=== PATIENT | female | born 1985 | race Caucasian/White ===

== ENCOUNTER → 2017-02-22 | Outpatient (CLI) | payer BC ==
[2017-02-22 16:33] LABS: CH 28.9; CHCM 34.9; HCT 36.6 % (34.0-46.0); HDW 2.59; MCH 29.4 pg (25.0-35.0); MCHC 35.5 g/dL (31.0-37.0); Mean Platelet Volume 6.4; RDW 12.6 % (11.5-15.5); WBC 11.5 k/uL (3.8-10.6)
[2017-02-22 16:49] LABS: Glucose 73 mg/dL (74-99); Non-African American GFR(MDRD) >60 (>60 ml/min/1.73 sqM)
[2017-02-22 17:20] LABS: Hepatitis B Surface Ag Index 0.05
[2017-02-23 00:50] LABS: Treponemal Ab Non-Reactive (Non-Reactive)
[2017-02-23 05:31] LABS: Toxoplasma Antibody (IgG) <3.0 IU/mL (<7.2)
== END | disposition home or self-care (01) ==
LOC: LABWHC1 16:02
PROVIDERS: ATTEND Obstetrics & Gynecology
DX: O26.811 Pregnancy related exhaustion and fatigue, first trimester (principal); Z3A.00 Weeks of gestation of pregnancy not specified
CPT/HCPCS: 36415; 82565; 82947; 85027; 86762; 86777; 86778; 86780; 86850; 86900; 86901; 87340; 87390; 87491; 87591

== ENCOUNTER → 2017-06-26 | Outpatient (CLI) | payer BC ==
[2017-06-26 08:52] LABS: HCT 38.1 % (34.0-46.0); HGB 12.8 gm/dL (11.4-16.0); MCH 28.8 pg (25.0-35.0); MCHC 33.6 g/dL (31.0-37.0); MCV 85.7 fL (80.0-100.0); Mean Platelet Volume 7.6; Platelet Count 250 k/uL (150-450); RBC 4.44 m/uL (3.80-5.40)
== END | disposition home or self-care (01) ==
LOC: LABWHC1 07:23
PROVIDERS: ATTEND Obstetrics & Gynecology
DX: Z34.82 Encounter for supervision of other normal pregnancy, second trimester (principal); Z3A.00 Weeks of gestation of pregnancy not specified
CPT/HCPCS: 36415; 82950; 85027; 86850

== ENCOUNTER → 2017-07-01 | Outpatient (CLI) | payer BC ==
[2017-07-01 12:05] LABS: Glucose 3 Hour, Gest 116 mg/dL
== END | disposition home or self-care (01) ==
LOC: LABWHC1 07:19
PROVIDERS: ATTEND Obstetrics & Gynecology
DX: O99.810 Abnormal glucose complicating pregnancy (principal); Z3A.00 Weeks of gestation of pregnancy not specified
CPT/HCPCS: 36415; 82951; 82952

== ENCOUNTER 2017-08-31 06:25 | Inpatient (IN) | payer BC ==
[2017-08-31] MEDS ORDERED: CARBOPROST TROMETHAMINE 250 MCG/ML 1 ML AMP IM PRN (06:43)
[2017-08-31] MEDS ORDERED: OXYTOCIN 10 UNIT/ML 1 ML VIAL IM PRN (06:43)
[2017-08-31] MEDS ORDERED: METHYLERGONOVINE 0.2 MG/ML 1 ML AMP IM PRN (06:43)
[2017-08-31] MEDS ORDERED: TERBUTALINE 1 MG/ML VIAL SQ PRN (06:43)
[2017-08-31] MEDS ORDERED: LIDOCAINE 1% (PF) 10 MG/ML (30 ML SDV) SQ PRN (06:43)
[2017-08-31 07:09] LABS: Basophils # (A) 0.1 k/uL (0-0.2); Basophils % (A) 1 %; Eosinophils # (A) 0.1 k/uL (0-0.7); Eosinophils % (A) 1 %; HCT 41.2 % (34.0-46.0); HGB 14.7 gm/dL (11.4-16.0); Lymphocytes # (A) 2.2 k/uL (1.0-4.8); Lymphocytes % (A) 18 %; MCH 29.7 pg (25.0-35.0); MCHC 35.8 g/dL (31.0-37.0); MCV 83.1 fL (80.0-100.0); Mean Platelet Volume 8.6; Monocytes # (A) 0.9 k/uL (0-1.0); Monocytes % (A) 7 %; Neutrophils # (A) 8.6 k/uL (1.3-7.7); Neutrophils % (A) 71 %; Platelet Count 219 k/uL (150-450); RBC 4.96 m/uL (3.80-5.40); RDW 13.3 % (11.5-15.5); WBC 12.1 k/uL (3.8-10.6)
[2017-08-31 07:45] VITALS: BMI 27.4
[2017-08-31] MEDS: LACTATED RINGERS 1,000 ML IV SCH ×2 (07:46→20:37)
[2017-08-31] MEDS ORDERED: SODIUM CHLORIDE 0.9% 100 ML BAG ONE (07:53)
[2017-08-31] MEDS ORDERED: BUPIVACAINE (PF) 0.25% 30 ML VIAL ONE (07:53)
[2017-08-31] MEDS ORDERED: fentaNYL (PF) 50 MCG/ML 5 ML AMP ONE (07:53)
[2017-08-31] MEDS ORDERED: OXYTOCIN 20 UNITS/1000 ML NS 1,000 ML IV SCH (09:45)
[2017-08-31] MEDS ORDERED: LANOLIN CREAM 5 GM TUBE TOPICAL PRN (12:23)
[2017-08-31] MEDS ORDERED: diphenhydrAMINE 25 MG CAP PO PRN (12:23)
[2017-08-31] MEDS ORDERED: SIMETHICONE 80 MG CHEWABLE PO PRN (12:23)
[2017-08-31] MEDS ORDERED: WITCH HAZEL 1 EACH MED..PAD TOPICAL PRN (12:23)
[2017-08-31] MEDS ORDERED: diphenhydrAMINE 50 MG/ML 1 ML VIAL IVP PRN ×2 (12:23)
[2017-08-31] MEDS ORDERED: Acetaminophen-Codeine 300-30mg TAB PO PRN ×2 (12:23)
[2017-08-31] MEDS ORDERED: ACETAMINOPHEN TAB 325 MG TAB PO PRN (12:23)
[2017-08-31] MEDS ORDERED: ZOLPIDEM 5 MG TAB PO PRN (12:23)
[2017-08-31] MEDS ORDERED: HYDROCORTISONE 2.5% RECTAL CREAM 30 GM TUBE RECTAL PRN (12:23)
[2017-08-31] MEDS ORDERED: diphenhydrAMINE 50 MG CAP PO PRN (12:23)
[2017-08-31] MEDS ORDERED: BENZOCAINE/MENTHOL SPRAY 1 GM/SPRAY AEROSOL TOPICAL PRN (12:23)
--- NOTE | 2017-08-31 12:25 | P.HPOB ---
History of Present Illness H&P Date: 08/31/17 Chief Complaint: Intrauterine at term: Active labor Marlys is a 31-year-old at 39 weeks gestation who arrives in active labor making cervical change. She is dilated to 7 cm on arrival. Jay every 2-3 minutes. heart tones 130s to 140s and reactive. Her course has remained unremarkable and she is feeling well at this time. On physical exam her vital signs are stable and afebrile. Heart regular, lungs clear, extremities without pain. Abdomen is soft gravid uterus is noted. Artificial rupture membranes was performed and light meconium was noted. Pertinent labs include A- blood type Rh antibody was negative, rubella immune, hepatitis B surface antigen and RPR were both negative as was groupie strep. Assessment intrauterine at term. Plan expect spontaneous vaginal delivery. She plans to use epidural for analgesia. Past Medical History Past Medical History: No Reported History History of Any Multi-Drug Resistant Organisms: None Reported Past Surgical History: Tonsillectomy Past Anesthesia/Blood Transfusion Reactions: No Reported Reaction Past Psychological History: No Psychological Hx Reported Smoking Status: Never smoker Past Alcohol Use History: None Reported Past Drug Use History: None Reported - Past Family History Mother Family Medical History: No Reported History Medications and Allergies Home Medications Medication Instructions Recorded Confirmed Type Pnv,Calcium 72/Iron/Folic Acid 1 tab PO DAILY 08/04/15 08/31/17 History [Pnv Plus Multivit Tab] Allergies Allergy/AdvReac Type Severity Reaction Status Date / Time Sulfa (Sulfonamide Allergy Swelling Verified 08/31/17 06:41 Antibiotics) Exam Osteopathic Statement: *. No significant issues noted on an osteopathic structural exam other than those noted in the History and Physical/Consult. - Vital Signs Vital signs: Vital Signs Temp Pulse Pulse Resp BP 08/31/17 07:08 97.9 F 80 17 129/82 08/31/17 06:54 97.7 F 81 15 121/80 Intake and Output 08/30/17 08/31/17 08/31/17 22:59 06:59 14:59 Output Total 150 Balance -150 Output: Urine 150 Straight 150 Other: Weight 70.307 kg 70.307 kg Results Result Diagrams: 08/31/17 06:47 Abnormal Lab Results - Last 24 Hours (Table) 08/31/17 Range/Units 06:47 WBC 12.1 H (3.8-10.6) k/uL Neutrophils # 8.6 H (1.3-7.7) k/uL
--- NOTE | 2017-08-31 12:28 | P.PROBDLV ---
Vaginal Delivery Note - . Vaginal Delivery Note: Patient progressed to complete and pushed with spontaneous vaginal delivery of a viable female over a third-degree perineal laceration. Following delivery of the head anterior posterior shoulders were delivered with essentially sideways traction by initially delivering the posterior shoulder by grasping underneath the axilla and rotating it in a counterclockwise motion. I do not believe this was a shoulder dystocia but it made to deliver easier in this particular situation. Once baby was delivered mouth nares were bulb suctioned and baby was placed on mother's abdomen where the umbilical cord was allowed to pulsate for 30 seconds prior to clamping and cutting. Nursery personnel was present to assume care. Placenta was then delivered intact and Pitocin was added to the IV. scores were 8 and 9 at one and 5 minutes respectfully weight was 9 lbs. 7 oz. Third-degree perineal laceration was noted and repaired in 2 layers initially a deep layer with 3-0 Vicryl was placed and then the remaining layer was repaired as an episiotomy once Xylocaine was used for analgesia and another 3-0 Vicryl was used at this point. A rectal exam was done at the beginning of the repair or involvement was noted and then again at the end of the repair it was also done. There was also an 18 await noted while touching near the anus indicating most likely no significant neurologic damage to her anus.
[2017-08-31] MEDS ORDERED: Rhogam IMMUNE GLOBULIN 1,500 UNIT/1 ML IM ONE (15:53)
[2017-08-31] MEDS: IBUPROFEN 600 MG TAB PO PRN (19:41)
[2017-08-31] MEDS: SENNOSIDES-DOCUSATE SODIUM 1 EACH TAB PO SCH (19:41)
[2017-09-01 07:38] VITALS: BP 103/60; PULSE 90; RESP 14; TEMP 98.4
--- NOTE | 2017-09-01 07:47 | P.DS ---
Providers Date of admission: 08/31/17 06:40 Expected date of discharge: 09/01/17 Attending physician: Jalen Bravo Primary care physician: Stated None Hospital Course: Marlys is doing very well day 1. She is ambulating, voiding, and she is tolerating her diet. She voices no complaints. Vital signs are stable and afebrile. Heart regular, lungs clear, extremities without pain. Her abdomen is soft uterus is firm below the umbilicus and lochia is reported be light. She'll plan to use a stool softer for next few days just to keep her stool soft trying to go through with a third-degree laceration. And Motrin prescription has been provided with a breast pump prescription. All the questions are answered for her prior to discharge. Discharge instructions thoroughly reviewed. She is stable for discharge this time. She will follow up with me in 6 weeks. Patient Condition at Discharge: Good Plan - Discharge Summary New Discharge Prescriptions: New Ibuprofen [Motrin] 600 mg PO Q6HR PRN #30 tab PRN Reason: Pain No Action Pnv,Calcium 72/Iron/Folic Acid [Pnv Plus Multivit Tab] 1 tab PO DAILY Discharge Medication List Pnv,Calcium 72/Iron/Folic Acid [Pnv Plus Multivit Tab] 1 tab PO DAILY 08/04/15 [History] Ibuprofen [Motrin] 600 mg PO Q6HR PRN #30 tab 09/01/17 [Rx] Follow up Appointment(s)/Referral(s): Jalen Bravo DO [Doctor of Osteopathic Medicine] - 6 Weeks Activity/Diet/Wound Care/Special Instructions: No heavy lifting, limit stairs and driving, and pelvic rest. If any high temperatures, heavy bleeding, or severe pain call my office Discharge Disposition: HOME SELF-CARE
[2017-09-01] MEDS: IBUPROFEN 600 MG TAB PO PRN (08:05)
[2017-09-01] MEDS: SENNOSIDES-DOCUSATE SODIUM 1 EACH TAB PO SCH (08:06)
== END 2017-09-01 13:05 | disposition home or self-care (01) | DRG 775 ==
LOC: FBPOP 06:25 → 4FBP 06:40
PROVIDERS: ADMIT Obstetrics & Gynecology; ATTEND Obstetrics & Gynecology
PROC: 10E0XZZ Delivery of Products of Conception, External Approach (ICD-10-PCS; principal; 2017-08-31)
PROC: 0DQR0ZZ Repair Anal Sphincter, Open Approach (ICD-10-PCS; 2017-08-31)
PROC: 3E0234Z Introduction of Serum, Toxoid and Vaccine into Muscle, Percutaneous Approach (ICD-10-PCS; 2017-08-31)
DX: O77.0 Labor and delivery complicated by meconium in amniotic fluid (principal); O70.20 Third degree perineal laceration during delivery, unspecified; O26.893 Other specified pregnancy related conditions, third trimester; Z37.0 Single live birth; Z3A.39 39 weeks gestation of pregnancy; Z67.91 Unspecified blood type, Rh negative; Z88.2 Allergy status to sulfonamides
CPT/HCPCS: 59025; 84112; 85025; 85461; 88307; 99213